=== PATIENT | male | born 1965 | race Caucasian/White ===

== ENCOUNTER 2020-06-11 15:03 | Emergency (ER) | payer OTHER ==
[~2020-06-11] VITALS: Ht 182.8 cm; Wt 89.5 kg
--- NOTE | 2020-06-11 16:20 | ED General ---
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 He is apparently being arrested for suspicion of DUI. From what I was told that his policy to bring any DUI suspicious patient to the emergency department for medical clearance for confinement. Patient denies any complaints of pain nausea vomiting dizziness chest pain shortness of breath and he is in no apparent distress and has normal vital signs. He denies any medical complaints at all to me and is not sure why he is here other than he was told he has to come here. Allergies and Home Medications Patient Home Medication List Home Medication List Reviewed: Yes Review of Systems Review of Systems Constitutional: no symptoms reported EENTM: no symptoms reported Respiratory: no symptoms reported Cardiovascular: no symptoms reported Gastrointestinal: no symptoms reported Genitourinary: no symptoms reported Musculoskeletal: no symptoms reported Skin: no symptoms reported Psychiatric/Neurological: No Symptoms Reported All Other Systems Reviewed Negative Unless Noted: Yes Past [id number]-[id number]-Jrkqor Hx Patient Social History Recent Foreign Travel: No Contact w/Someone Who Travel: No Physical Exam Vital Signs Capillary Refill : Height, Weight, BMI Height: '" Weight: lbs. oz. kg; BMI Method: General Appearance: No Apparent Distress, WD/WN HEENT: PERRL/EOMI Neck: Supple Respiratory: No Respiratory Distress Cardiovascular: Regular Rate, Rhythm Gastrointestinal: Non Tender, Soft Extremity: Normal Capillary Refill, No Pedal Edema Neurologic/Psychiatric: Alert, Oriented x3, No Motor/Sensory Deficits, Normal Mood/Affect Skin: Warm/Dry Progress/Results/Core Measures Suspected Sepsis SIRS Temperature: Pulse: Respiratory Rate: Blood Pressure / Mean: Results/Orders Vital Signs/I&O Capillary Refill : Progress Note : Progress Note Patient brought for medical clearance for confinement and he is medically cleared from my standpoint as he has no medical complaints and is alert and oriented 3 has a normal gait and has normal vital signs. Departure Impression Primary Impression: Alcohol abuse Disposition: [address] DIS/[address]/LAW ENFORCE Condition: Stable Departure-Patient Inst. Referrals: NO,LOCAL PHYSICIAN (PCP/Family) Primary Care Physician Patient Instructions: ALCOHOL AND SUBSTANCE ABUSE Add. Discharge Instructions: Patient is cleared for confinement. All discharge instructions reviewed with patient and/or family. Voiced understanding. ANILA ABRAHAM DO Jun 11, 2020 16:20
[2020-06-11 16:30] VITALS: BP 110/68
== END 2020-06-11 16:30 ==
LOC: ER FS 15:06
DX: F10.10 Alcohol abuse, uncomplicated (principal)
CPT/HCPCS: 99283

== ENCOUNTER → 2021-02-16 | Outpatient (CLI) | payer BC ==
--- NOTE | 2021-02-16 09:45 | Diagnostic Imaging Report ---
EXAMINATION: Lumbosacral spine 2 or 3 views 02/16/2021. HISTORY: LOW BACK PAIN COMPARISON: None available. FINDINGS: There is no abnormal height and alignment of the vertebral bodies. Straightening of the normal curvature could be positional or due to muscle spasm. Intervertebral disc spaces preserved. No fractures or subluxations. There is minimal facet hypertrophy at L5-S1. Mild atherosclerotic disease incidentally noted. IMPRESSION: 1. Mild chronic findings. No acute process. Dictated by: Dictated on workstation # [id number]
== END ==
LOC: RAD FS 08:48
PROVIDERS: ATTEND Nurse Practitioner
DX: M54.5 Low back pain (principal)
CPT/HCPCS: 72100